=== PATIENT | male | born 1940 | race Caucasian/White ===

== ENCOUNTER → 2017-01-26 | Outpatient (CLI) | payer MEDICARE, BC ==
[~2017-01-26] MED LIST: ATIVAN; BUFFERED ASPIRIN; DIOVAN; FLOMAX; FLUOXETINE; HCTZ; LIPITOR; NEXIUM PO; PULMICORT0.5 MG/21 IH; SINGULAIR; SPIRIVA INH IH; TAZTIA XT240 MG PO; [UNRECOGNIZED DRUG - OTHER]
== END ==
LOC: COL.VAS 11:15
DX: I08.3 Combined rheumatic disorders of mitral, aortic and tricuspid valves (principal); I77.810 Thoracic aortic ectasia

== ENCOUNTER → 2017-08-09 | Outpatient (CLI) | payer MEDICARE, BC | LOC: COL.RAD 10:56 | DX: A31.9 Mycobacterial infection, unspecified (principal); Z98.890 Other specified postprocedural states ==

== ENCOUNTER 2021-06-12 10:23 | Day surgery (SDC) | payer MEDICARE, BC ==
[2021-06-12] VITALS (7 sets, daily range): BP systolic 103–152; BP diastolic 59–90; PULSE 53–67; TEMP 97.7
[~2021-06-12] VITALS: Ht 182.9 cm; Wt 89.5 kg
[2021-06-12 11:16] LABS: HEMOGLOBIN 11.6 g/dl (13.5-18.0); MEAN CELL VOLUME 92 fl (80.0-100.0); MEAN CORPUSCULAR HEMOGLOBIN 30 pg (27-31); MEAN CORPUSCULAR HGB CONC 33 g/dl (33.0-37.0); MEAN PLATELET VOLUME 11.8 fl (7.4-10.4); PLATELET COUNT 184 K/mm3 (130-400); RED BLOOD COUNT 3.83 M/mm3 (4.20-5.60); REDCELL DISTRIBUTION WIDTH-CV 13.3 % (11.5-14.5)
[2021-06-12 11:17] LABS: HEMATOCRIT 35.1 % (42.0-52.0)
[2021-06-12 11:27] LABS: INR 1.1 (0.8-3.0)
[2021-06-12 11:30] LABS: PARTIAL THROMBOPLASTIN TIME 28.8 SECONDS (26.0-37.0)
[2021-06-12 11:32] LABS: CALCIUM 8.6 mg/dL (8.4-10.2); CREATININE, serum 1.4 mg/dL (0.72-1.25); POTASSIUM 4.2 mmol/L (3.5-4.5)
[2021-06-12] MEDS ORDERED: NORVASC 5MG5 MG/TAB PO (11:33)
[2021-06-12] MEDS ORDERED: TOPROL XL 25MG25 MG PO (11:33)
[2021-06-12] MEDS ORDERED: ASPIRIN E.C. 8181 MG PO (11:34)
[2021-06-12] MEDS ORDERED: ANORO IH (11:34)
[2021-06-12] MEDS ORDERED: LIPITOR 40MG TA40 MG PO (11:34)
[2021-06-12] MEDS ORDERED: VOLTAREN 75 DR75 MG PO (11:35)
[2021-06-12] MEDS ORDERED: PROZAC 20MG20 MG PO (11:35)
[2021-06-12] MEDS ORDERED: XOPENEX HF0.045 MG/A IH (11:36)
[2021-06-12] MEDS ORDERED: COZAAR100 MG PO (11:37)
[2021-06-12] MEDS ORDERED: CLARITIN 1010 MG/TAB PO (11:37)
[2021-06-12] MEDS ORDERED: REGLAN 5MG T5 MG/TAB PO (11:38)
[2021-06-12] MEDS ORDERED: REMERON 15M15 MG/TA1 PO (11:39)
[2021-06-12] MEDS ORDERED: SINGULAIR 110 MG/TAB PO (11:39)
[2021-06-12] MEDS ORDERED: PRIL40 PO (11:39)
[2021-06-12] MEDS ORDERED: MASON NATURAL2000 IU PO (11:40)
--- NOTE | 2021-06-12 13:26 | NUR ---
PATIENT ALERT AND ORIENTED. NO REPORTS OF CHEST PAIN OR DISCOMFORT. SEE MERGE FOR DETAILS INCLUDING EXACT DOCUMENTATION WELL MEDICATION ADMINISTRATION. DR. CONTRERAS TO UPDATE PATIENT AND FAMILY.
--- NOTE | 2021-06-12 13:30 | NUR ---
Pt is back to [facility] after heart cath. Pt is awake and alert, no distress. TR band to rt wrist. cms intact distal. Report from Raffi RN. Plan is transfer to higher level of care for possible bypass. PT aware of POC. sr on monitor. okay to give ice chips per Dr. Ritchie.
--- NOTE | 2021-06-12 14:54 | NUR ---
Pt transferred to [facility] in [place], rm 752 by [facility] at 1445. Report called to Kvng GARZA at [facility] at [phone].
== END 2021-06-12 14:45 | disposition short-term general hospital (02) ==
LOC: COL.CAR 10:23
PROVIDERS: Internal Medicine Cardiovascular Disease
DX: I25.10 Atherosclerotic heart disease of native coronary artery without angina pectoris (principal); I10 Essential (primary) hypertension; I38 Endocarditis, valve unspecified; I77.819 Aortic ectasia, unspecified site; R73.03 Prediabetes; J41.0 Simple chronic bronchitis; G47.33 Obstructive sleep apnea (adult) (pediatric); R55 Syncope and collapse; Z79.82 Long term (current) use of aspirin; Z79.899 Other long term (current) drug therapy; Z85.118 Personal history of other malignant neoplasm of bronchus and lung
CPT/HCPCS: J1644; J2250; J3010

== ENCOUNTER 2021-06-24 08:55 | Outpatient (CLI) | payer MEDICARE, BC ==
[~2021-06-24] VITALS: Ht 182.9 cm; Wt 88.4 kg
[2021-06-24] VITALS (80 sets, daily range): BP systolic 114–136; BP diastolic 66–84; PULSE 71–80; TEMP 98.2–98.8; O2SAT 87–95
[~2021-06-24 08:55] MED LIST changes: +ANORO IH; +ASPIRIN E.C. 8181 MG PO; +CLARITIN 1010 MG/TAB PO; +COZAAR100 MG PO; +LIPITOR 40MG TA40 MG PO; +MASON NATURAL2000 IU PO; +NORVASC 5MG5 MG/TAB PO; +PRIL40 PO; +PROZAC 20MG20 MG PO; +REGLAN 5MG T5 MG/TAB PO; +REMERON 15M15 MG/TA1 PO; +SINGULAIR 110 MG/TAB PO; +TOPROL XL 50MG50 MG PO; +VOLTAREN 75 DR75 MG PO; +XOPENEX HF0.045 MG/A IH
[2021-06-24] MEDS ORDERED: FERROUS SU325 MG/TAB PO (16:24)
[2021-06-24] MEDS ORDERED: PLAVIX 75MG TAB75 MG PO (16:24)
[2021-06-24] MEDS ORDERED: FLEXERIL 1010 MG/TAB PO (16:24)
[2021-06-24] MEDS ORDERED: PROTONIX 40MG T40 MG PO (16:25)
[2021-06-24] MEDS ORDERED: MAG-OX 400400 MG/TAB PO (16:26)
== END 2021-06-24 14:00 | disposition home or self-care (01) ==
LOC: EUO 08:55
DX: E83.42 Hypomagnesemia (principal)
CPT/HCPCS: J3475

== ENCOUNTER 2021-07-10 10:35 | Outpatient (RCR) | payer MEDICARE, BC ==
[~2021-07-10 10:35] MED LIST changes: +FERROUS SU325 MG/TAB PO; +FLEXERIL 1010 MG/TAB PO; +MAG-OX 400400 MG/TAB PO; +PLAVIX 75MG TAB75 MG PO; +PROTONIX 40MG T40 MG PO
== END 2021-07-11 | disposition still patient (30) ==
LOC: COL.CR
DX: Z48.812 Encounter for surgical aftercare following surgery on the circulatory system (principal); Z95.5 Presence of coronary angioplasty implant and graft; I25.118 Atherosclerotic heart disease of native coronary artery with other forms of angina pectoris

== ENCOUNTER 2021-08-07 14:22 | Outpatient (RCR) | payer MEDICARE, BC | END 2021-08-11 | disposition home or self-care (01) | LOC: COL.CR | DX: Z48.812 Encounter for surgical aftercare following surgery on the circulatory system (principal); Z95.5 Presence of coronary angioplasty implant and graft; I25.118 Atherosclerotic heart disease of native coronary artery with other forms of angina pectoris ==

== ENCOUNTER 2021-09-03 04:58 | Inpatient (IN) | payer MEDICARE, BC ==
[~2021-09-03] VITALS: Ht 177.8 cm; Wt 83.7 kg
[2021-09-03 06:45] LABS: BASO # 0.1 K/mm3 (0.0-0.2); BASO % 0.5 % (0.0-2.0); EOS # 0.1 K/mm3 (0.0-0.7); EOS % 0.8 % (0.0-4.0); GRAN # 8.6 K/mm3 (1.4-6.5); GRAN % 86.5 % (42.2-75.2); HEMATOCRIT 39.6 % (42.0-52.0); HEMOGLOBIN 12.4 g/dl (13.5-18.0); LYMPH # 0.7 K/mm3 (1.2-3.4); LYMPH % 7.5 % (20.0-51.0); MEAN CELL VOLUME 92 fl (80.0-100.0); MEAN CORPUSCULAR HEMOGLOBIN 29 pg (27-31); MEAN CORPUSCULAR HGB CONC 31 g/dl (33.0-37.0); MEAN PLATELET VOLUME 11.6 fl (7.4-10.4); MONO # 0.4 K/mm3 (0.1-0.6); MONO % 4.3 % (1.7-9.3); PLATELET COUNT 215 K/mm3 (130-400); RED BLOOD COUNT 4.32 M/mm3 (4.20-5.60); REDCELL DISTRIBUTION WIDTH-CV 13.8 % (11.5-14.5)
[2021-09-03 06:59] LABS: ALBUMIN 3.6 gm/dL (3.4-4.8); BILIRUBIN,TOTAL 0.5 mg/dL (0.2-1.2); CALCIUM 8.7 mg/dL (8.4-10.2); CREATININE, serum 0.82 mg/dL (0.72-1.25); TOTAL PROTEIN 6.5 gm/dL (6.2-8.1)
[2021-09-03 07:05] LABS: TROPONIN-I 0.012 ng/mL (0.00-0.033)
[2021-09-03] MEDS ORDERED: MUCINEX 60600 MG/TA1 PO (09:25)
[2021-09-03] MEDS ORDERED: PROZAC 20MG20 MG PO (09:27)
[2021-09-03 11:52] VITALS: BP 121/57; PULSE 81; TEMP 98.7
--- NOTE | 2021-09-03 14:01 | NUR ---
Slide Machine Tender met with patient to discuss discharge planning. Patient lives in [place] with his , Shelia (ph#[phone]) and sees Dr. Lee for primary care. Patient obtains medications from [facility] with no difficulties. Patient has a CPAP and night time oxygen from [facility]. Patient reports independence with ADLS and plans to return home at discharge. Patient reports his is his DPOA-HC. Discharge Plan: Home
--- NOTE | 2021-09-03 15:26 | NUR ---
PT ARRIVED TO ROOM @ [address] PT HAS RESTED MOST OF DAY, EATS BREAKFAST ET LUNCH WITH NO PROBLEMS. OXYGEN ON @ 4L NC, HAS DENIED FURTHER SOB OR ANY PAIN. PT IS STEADY WHILE AMBULATING, HAS BEEN TO BR, REQUIRES ONLY SBA. PT'S SPOUSE IS @ BEDSIDE @ THIS TIME, BOTH DENY NEEDS. RESPIRATIONS UNLABORED. CALL LIGHT WITHIN REACH.
[2021-09-03 15:55] VITALS: BP 112/59; PULSE 89; TEMP 98.7
--- NOTE | 2021-09-03 19:14 | NUR ---
RECEIVED CHANGE OF SHIFT REPORT FROM DAY SHIFT RN.
[2021-09-03 19:35] VITALS: BP 124/56; PULSE 81; TEMP 99.2
--- NOTE | 2021-09-03 20:21 | NUR ---
OXYGEN CONTINUES PER NC AT 5LPM/NC. REPORTS NO WEAKNESS TO BLE WHEN UP OUT OF BED, REPORTS SOME AWKWARDNESS WITH WALKING/MOVING AROUND ROOM WITH OXYGEN TANK. DENIES ANY DISCOMFORT AT THIS TIME.
[2021-09-03 23:45] VITALS: BP 116/55; PULSE 76; TEMP 99
[2021-09-04 04:10] VITALS: BP 122/55; PULSE 70; TEMP 98.6
[2021-09-04 06:28] LABS: BASO # 0.1 K/mm3 (0.0-0.2); BASO % 0.4 % (0.0-2.0); EOS # 0.2 K/mm3 (0.0-0.7); EOS % 1.3 % (0.0-4.0); GRAN # 9.4 K/mm3 (1.4-6.5); GRAN % 78.1 % (42.2-75.2); HEMOGLOBIN 11.7 g/dl (13.5-18.0); LYMPH # 1.5 K/mm3 (1.2-3.4); LYMPH % 12.7 % (20.0-51.0); MEAN CELL VOLUME 91 fl (80.0-100.0); MEAN CORPUSCULAR HEMOGLOBIN 29 pg (27-31); MEAN CORPUSCULAR HGB CONC 32 g/dl (33.0-37.0); MEAN PLATELET VOLUME 12.1 fl (7.4-10.4); MONO # 0.8 K/mm3 (0.1-0.6); PLATELET COUNT 206 K/mm3 (130-400); RED BLOOD COUNT 4.07 M/mm3 (4.20-5.60); REDCELL DISTRIBUTION WIDTH-CV 14.2 % (11.5-14.5)
--- NOTE | 2021-09-04 06:39 | NUR ---
CHANGE OF SHIFT REPORT GIVEN TO DAY SHIFT RNRENALDO.
[2021-09-04 07:03] LABS: ALBUMIN 3.2 gm/dL (3.4-4.8); CALCIUM 8.9 mg/dL (8.4-10.2); CREATININE, serum 0.85 mg/dL (0.72-1.25); PHOSPHOROUS 3.7 mg/dL (2.3-4.7); POTASSIUM 3.5 mmol/L (3.5-4.5)
[2021-09-04 08:00] VITALS: BP 140/69; PULSE 78; TEMP 98.3
--- NOTE | 2021-09-04 10:24 | NUR ---
Initial visit; Patient thanked Election Clerk for looking in on him and offering God's blessings. Patient thanked Election Clerk for visit and was receptive to Election Clerk keeping himin her prayers.
[2021-09-04 11:48] VITALS: BP 109/54; PULSE 73; TEMP 98.1
--- NOTE | 2021-09-04 14:11 | NUR ---
RE:HEART FAILURE - PT CURRENTLY ENROLLED IN CARDIAC REHAB. WILL CONTINUE EDUCATION WITH PATIENT UPON RETURN TO PROGRAM. PT STATES HE IS FEELING MUCH BETTER - STAFF REVIEWED S/X OF CHF/COPD EXASTERBATION AND WHEN TO CONTACT MD. PT PLANS TO RETURN TO CARDIAC REHAB NEXT WEEK IF FEELING UP TO IT. STAFF AGREEABLE WITH PLAN.
[2021-09-04 15:56] VITALS: BP 126/57; PULSE 78; TEMP 98.5
--- NOTE | 2021-09-04 19:28 | NUR ---
PT HAS RESTED IN BED MOST OF DAY, DID PARTICIPATE WITH PHYSICAL THERAPY THIS AM. PT AMBULATES WITH EASE ET FALL RISK IS UPDATED FROM HIGH TO MODERATE. PT AMBULATES INDEPENDENTLY IN ROOM, ENCOURAGED TO CALL FOR NEEDS. PT HAS USED URINAL, URINE IS YELLOW ET CLEAR. OXYGEN HAS BEEN DECREASED FROM 5L TO 2L PER NC, PT HAS TOLERATED WELL. OXYGEN SATS 91-93%. PT DENIES ANY CHEST PAIN OR SOB.
[2021-09-04 19:46] VITALS: BP 116/57; PULSE 80; TEMP 98.5
--- NOTE | 2021-09-04 23:22 | NUR ---
ASSESSMENT COMPLETE. PT. LYING IN BED SLEEPING. ORIENTED X4. NO COMPLAINTS OF PAIN. ON 2 L/MIN OF OXYGEN. INT PATENT TO LEFT AC. CALL LIGHT IN REACH. NO FURTHER NEEDS AT THIS TIME.
[2021-09-04 23:47] VITALS: BP 110/64; PULSE 78; TEMP 98.6
[2021-09-05 03:56] VITALS: BP 98/48; PULSE 78; TEMP 98.4
[2021-09-05 08:19] VITALS: BP 104/58; PULSE 76; TEMP 98.5
[2021-09-05 08:38] LABS: BASO # 0.1 K/mm3 (0.0-0.2); BASO % 0.6 % (0.0-2.0); EOS # 0.3 K/mm3 (0.0-0.7); EOS % 3.2 % (0.0-4.0); GRAN # 7.3 K/mm3 (1.4-6.5); GRAN % 74.1 % (42.2-75.2); HEMATOCRIT 39.6 % (42.0-52.0); HEMOGLOBIN 12.9 g/dl (13.5-18.0); LYMPH # 1.4 K/mm3 (1.2-3.4); LYMPH % 14.4 % (20.0-51.0); MEAN CELL VOLUME 89 fl (80.0-100.0); MEAN CORPUSCULAR HEMOGLOBIN 29 pg (27-31); MEAN CORPUSCULAR HGB CONC 33 g/dl (33.0-37.0); MEAN PLATELET VOLUME 11.7 fl (7.4-10.4); MONO # 0.7 K/mm3 (0.1-0.6); MONO % 7.2 % (1.7-9.3); PLATELET COUNT 233 K/mm3 (130-400); RED BLOOD COUNT 4.45 M/mm3 (4.20-5.60); REDCELL DISTRIBUTION WIDTH-CV 13.9 % (11.5-14.5)
[2021-09-05] MEDS ORDERED: CEFTIN500 MG PO (08:50)
[2021-09-05 09:01] LABS: ALBUMIN 3.3 gm/dL (3.4-4.8); CALCIUM 9.2 mg/dL (8.4-10.2); CREATININE, serum 0.86 mg/dL (0.72-1.25); PHOSPHOROUS 3.9 mg/dL (2.3-4.7); POTASSIUM 3.6 mmol/L (3.5-4.5)
--- NOTE | 2021-09-05 09:20 | NUR ---
PT CONTINUES TO HAVE MOIST HACKING COUGH INTERMITTENTLY, LARGE AMOUNT OF SPUTUM EXPECTORATED, IS BROWN/DARK GREEN ET THICK. PT STATES THAT SPUTUM IS DIFFICULT TO COUGH UP. O2 SATS 88-89% ON 2.5L, INCREASED TO 3L NC, SATS ARE THEN 91-93%. PT IS GIVEN FRESH ICE WATER, DENIES OTHER NEEDS.
[2021-09-05 11:00] VITALS: BP 106/58; PULSE 76; TEMP 98
[2021-09-05] MEDS ORDERED: MUCINEX 60600 MG/TA1 PO (11:11)
[2021-09-05 15:48] VITALS: BP 115/62; PULSE 74; TEMP 98
[2021-09-05 21:35] VITALS: BP 121/61; PULSE 68; TEMP 98.7
--- NOTE | 2021-09-05 21:59 | NUR ---
ASSESSMENT COMPLETE. PT. IN BED READING. A&O. NO COMPLAINTS OF PAIN. NIGHTLY MEDS GIVEN. SEE EMAR. CALL LIGHT IN REACH. NO FURHTER NEEDS AT THIS TIME.
[2021-09-06 00:18] VITALS: BP 125/64; PULSE 66; TEMP 97.9
[2021-09-06 04:45] VITALS: BP 103/61; PULSE 68; TEMP 97.7
[2021-09-06 07:47] LABS: BASO # 0.1 K/mm3 (0.0-0.2); EOS # 0.4 K/mm3 (0.0-0.7); EOS % 5.2 % (0.0-4.0); GRAN # 5.5 K/mm3 (1.4-6.5); GRAN % 68.8 % (42.2-75.2); HEMATOCRIT 40.2 % (42.0-52.0); HEMOGLOBIN 12.7 g/dl (13.5-18.0); LYMPH # 1.3 K/mm3 (1.2-3.4); LYMPH % 16.6 % (20.0-51.0); MEAN CELL VOLUME 91 fl (80.0-100.0); MEAN CORPUSCULAR HEMOGLOBIN 29 pg (27-31); MEAN CORPUSCULAR HGB CONC 32 g/dl (33.0-37.0); MEAN PLATELET VOLUME 11.6 fl (7.4-10.4); MONO # 0.6 K/mm3 (0.1-0.6); MONO % 7.9 % (1.7-9.3); PLATELET COUNT 247 K/mm3 (130-400); RED BLOOD COUNT 4.41 M/mm3 (4.20-5.60); REDCELL DISTRIBUTION WIDTH-CV 13.9 % (11.5-14.5)
[2021-09-06 07:51] VITALS: BP 105/57; PULSE 71; TEMP 98.3
[2021-09-06 08:05] LABS: ALBUMIN 3.2 gm/dL (3.4-4.8); CALCIUM 9.3 mg/dL (8.4-10.2); CREATININE, serum 0.98 mg/dL (0.72-1.25); MAGNESIUM 2.1 mg/dL (1.6-2.6); PHOSPHOROUS 4.5 mg/dL (2.3-4.7); POTASSIUM 3.8 mmol/L (3.5-4.5)
[2021-09-06 12:00] VITALS: BP 93/60; PULSE 71; TEMP 98.1
--- NOTE | 2021-09-06 13:32 | NUR ---
ROSE MARIE faxed over DC orders and 1L script to pt current provider with [facility] in [facility]. Fax number [phone]. Pt is already using a portable concentrator at night at 1-4 L and has extra oxygen at home.
--- NOTE | 2021-09-06 15:00 | NUR ---
PT DISCHARGED TO HOME @ THIS TIME. PT GIVEN DISCHARGE INSTRUCTIONS ET EDUCATION, VERBALIZES UNDERSTANDING, DENIES QUESTIONS. RESPIRATIONS UNLABORED ON ROOM AIR. PT HAS HAD COUGH THAT IS LESS FREQUENT TODAY, PT STATES THAT HE IS STILL EXPECTORATING BROWN THICK SPUTUM. PT TAKEN TO PRIVATE VEHICLE VIA WC ACCOMPANIED BY BINH PERES.
== END 2021-09-06 15:00 | disposition home or self-care (01) | DRG 193 ==
LOC: COL.ER 04:58 → SURG 07:27
PROVIDERS: Emergency Medicine Emergency Medical Services; ADMIT Internal Medicine
DX: J18.9 Pneumonia, unspecified organism (principal); J96.01 Acute respiratory failure with hypoxia; R04.2 Hemoptysis; J44.9 Chronic obstructive pulmonary disease, unspecified; Z20.822 Contact with and (suspected) exposure to COVID-19; D64.9 Anemia, unspecified; F32.A Depression, unspecified; E78.5 Hyperlipidemia, unspecified; I11.0 Hypertensive heart disease with heart failure; I50.9 Heart failure, unspecified; K21.9 Gastro-esophageal reflux disease without esophagitis; I25.10 Atherosclerotic heart disease of native coronary artery without angina pectoris; Z95.5 Presence of coronary angioplasty implant and graft; Z90.89 Acquired absence of other organs; Z79.02 Long term (current) use of antithrombotics/antiplatelets; Z90.79 Acquired absence of other genital organ(s); Z91.048 Other nonmedicinal substance allergy status; Z92.3 Personal history of irradiation; Z85.118 Personal history of other malignant neoplasm of bronchus and lung; Z79.82 Long term (current) use of aspirin; Z72.89 Other problems related to lifestyle; Z87.891 Personal history of nicotine dependence; Z85.828 Personal history of other malignant neoplasm of skin; Z23 Encounter for immunization
CPT/HCPCS: 99223-AI; 99232-AI; 99239; J0692; J0696; J1940; Q9967

== ENCOUNTER 2021-09-09 12:25 | Outpatient (RCR) | payer MEDICARE, BC ==
[~2021-09-09 12:25] MED LIST changes: +CEFTIN500 MG PO; +MUCINEX 60600 MG/TA1 PO
== END 2021-09-10 | disposition home or self-care (01) ==
LOC: COL.CR
DX: Z48.812 Encounter for surgical aftercare following surgery on the circulatory system (principal); Z95.5 Presence of coronary angioplasty implant and graft

== ENCOUNTER 2021-10-09 12:11 | Outpatient (RCR) | payer MEDICARE, BC | END 2021-10-11 | disposition home or self-care (01) | LOC: COL.CR | DX: Z48.812 Encounter for surgical aftercare following surgery on the circulatory system (principal); Z95.5 Presence of coronary angioplasty implant and graft; I25.118 Atherosclerotic heart disease of native coronary artery with other forms of angina pectoris ==

== ENCOUNTER 2021-10-14 11:06 | Outpatient (RCR) | payer MEDICARE, BC | END 2021-10-16 11:42 | disposition home or self-care (01) | LOC: COL.CR 11:06 | DX: Z48.812 Encounter for surgical aftercare following surgery on the circulatory system (principal); Z95.5 Presence of coronary angioplasty implant and graft; I25.118 Atherosclerotic heart disease of native coronary artery with other forms of angina pectoris ==

== ENCOUNTER → 2021-11-11 | Outpatient (RCR) | payer MEDICARE, BC | END | disposition home or self-care (01) | LOC: COL.CR | DX: Z48.812 Encounter for surgical aftercare following surgery on the circulatory system (principal); Z95.5 Presence of coronary angioplasty implant and graft; I25.118 Atherosclerotic heart disease of native coronary artery with other forms of angina pectoris ==

== ENCOUNTER → 2022-01-11 | Outpatient (RCR) | payer MEDICARE, BC | END | disposition home or self-care (01) | LOC: COL.CR | DX: J44.9 Chronic obstructive pulmonary disease, unspecified (principal) ==

== ENCOUNTER 2022-09-10 10:10 | Inpatient (IN) | payer MEDICARE, BC ==
[~2022-09-10] VITALS: Wt 84.4 kg
[~2022-09-10 10:10] MED LIST changes: +DOXYCYCLINE 10100 MG PO; +LASIX 20MG TABL20 MG PO; -LIPITOR 40MG TA40 MG PO; +LIPITOR 80MG80 MG PO; +NITROSTAT0.4 MG/TAB SL; +PREDNISONE20 MG PO; +PROAIR HFA0.09 MG/AC IH; +TAMIFLU 75MG75 MG PO
[2022-09-10 10:43] LABS: BASO # 0.1 K/mm3 (0.0-0.2); BASO % 1.4 % (0.0-2.0); EOS # 0.3 K/mm3 (0.0-0.7); EOS % 3.9 % (0.0-4.0); GRAN # 3.7 K/mm3 (1.4-6.5); GRAN % 55.9 % (42.2-75.2); HEMATOCRIT 39.7 % (42.0-52.0); HEMOGLOBIN 12.5 g/dl (13.5-18.0); LYMPH % 30.8 % (20.0-51.0); MEAN CELL VOLUME 93 fl (80.0-100.0); MEAN CORPUSCULAR HEMOGLOBIN 29 pg (27-31); MEAN CORPUSCULAR HGB CONC 32 g/dl (33.0-37.0); MEAN PLATELET VOLUME 11.5 fl (7.4-10.4); MONO # 0.5 K/mm3 (0.1-0.6); MONO % 7.7 % (1.7-9.3); PLATELET COUNT 223 K/mm3 (130-400); RED BLOOD COUNT 4.29 M/mm3 (4.20-5.60); REDCELL DISTRIBUTION WIDTH-CV 14.5 % (11.5-14.5)
[2022-09-10 10:47] LABS: PROTHROMBIN TIME 11.3 SECONDS (9.7-12.8)
[2022-09-10 10:56] LABS: ALBUMIN 3.8 gm/dL (3.4-4.8); BILIRUBIN,TOTAL 0.6 mg/dL (0.2-1.2); CREATININE, serum 0.88 mg/dL (0.72-1.25); POTASSIUM 4.1 mmol/L (3.5-4.5); TOTAL PROTEIN 6.7 gm/dL (6.2-8.1)
[2022-09-10 11:03] LABS: TROPONIN-I 0.026 ng/mL (0.00-0.033)
[2022-09-10 12:00] LABS: COLLECTION METHOD CLEAN CATCH
[2022-09-10 12:03] LABS: URINE APPEARANCE Clear (CLEAR/HAZY); URINE COLOR Yellow (YELLOW)
[2022-09-10 12:04] LABS: PH 5.5 (5.0-8.5); SQUAMOUS EPITHELIAL 0-2 /hpf (0-10); URINE BACTERIA None Seen /hpf (NONE SEEN); URINE BLOOD Negative (NEGATIVE); URINE GLUCOSE Negative (NEGATIVE); URINE KETONE Negative (NEGATIVE); URINE NITRATE Negative (NEGATIVE); URINE PROTEIN(semi-quant) Negative (NEGATIVE); URINE RBC 0-2 /hpf (0-2); URINE UROBILINOGEN 0.2 E.U/dL (0.2-1.0)
[2022-09-10 12:45] LABS: CHOLESTEROL RISK RATIO 3.7
[2022-09-10] MEDS ORDERED: TYLENOL 500MG500 MG PO (13:45)
[2022-09-10] MEDS ORDERED: VITAMIN D31000 I1 PO (13:45)
[2022-09-10 15:44] VITALS: BP 139/64; PULSE 77; TEMP 97.9
--- NOTE | 2022-09-10 17:59 | NUR ---
Patient admitted around 1500 escorted by nutrition technician and family member. Patient was in pleasant mood and denied pain. Admission assessment completed, no variances noted. Patient reports feeling his symptoms have improved and denied anything worsening. Reports his baseline at home is independent and he is currently in an out patient PT program. Fall risk precautions in place. Telemetry on. Patient voices no concerns at this time. Currently resting in bed with HOB elevated 90 degrees per patient preference. Call light in reach.
[2022-09-10 19:54] VITALS: BP 133/67; PULSE 86; TEMP 97.8
[2022-09-10 21:00] VITALS: BP_SYST 120
[2022-09-11] VITALS (9 sets, daily range): BP systolic 110–136; BP diastolic 55–73; PULSE 72–84; TEMP 97.5–98.2
--- NOTE | 2022-09-11 02:31 | NUR ---
NURSING SHIFT ASSESSMENT COMPLETED. THE PATIENT WAS ALERT AND ORIENTED UPON ASSESSMENT. NO RESIDUAL STROKE SYMPTOMS NOTED. THE PATIENT DENIED PAIN OR DISCOMFORT. EVENING MEDICATIONS AND PLAN OF CARE DISCUSSED. CALL LIGHT WITHIN REACH. BED IN LOW POSITION. BED ALARM ON.
[2022-09-11 07:10] LABS: BASO % 0.2 % (0.0-2.0); EOS % 0.1 % (0.0-4.0); GRAN # 7.7 K/mm3 (1.4-6.5); GRAN % 79.5 % (42.2-75.2); HEMATOCRIT 36.5 % (42.0-52.0); HEMOGLOBIN 11.7 g/dl (13.5-18.0); LYMPH # 1.3 K/mm3 (1.2-3.4); LYMPH % 13.4 % (20.0-51.0); MEAN CELL VOLUME 92 fl (80.0-100.0); MEAN CORPUSCULAR HEMOGLOBIN 29 pg (27-31); MEAN CORPUSCULAR HGB CONC 32 g/dl (33.0-37.0); MEAN PLATELET VOLUME 11.8 fl (7.4-10.4); MONO # 0.6 K/mm3 (0.1-0.6); MONO % 6.2 % (1.7-9.3); PLATELET COUNT 227 K/mm3 (130-400); RED BLOOD COUNT 3.98 M/mm3 (4.20-5.60); REDCELL DISTRIBUTION WIDTH-CV 14.1 % (11.5-14.5)
[2022-09-11 07:20] LABS: ALBUMIN 3.3 gm/dL (3.4-4.8); CREATININE, serum 0.78 mg/dL (0.72-1.25); MAGNESIUM 2.1 mg/dL (1.6-2.6); PHOSPHOROUS 3.7 mg/dL (2.3-4.7)
--- NOTE | 2022-09-11 09:41 | NUR ---
Shift assessment complete. Patient reports no increase in stroke related symptoms. States he feels stronger than yesterday, but slightly weakned in general. Reports no issues with swallowing when eating, but notes slight difficulty with chewing food. Patient also stated he felt numbness in his left arm when he coughs hard. Patient denies pain. Tolerated breakfast well. Vital signs are stable.
--- NOTE | 2022-09-11 11:44 | NUR ---
SW met with patient to complete intake. Patient states that he lives in [facility] with Shelia Mar [phone]. Patient provides that he is independent with ADL's, does not utililize DME, and does not utilize HH services at this time. Patient provides that his PCP is Dr. Lee, and pharmacy is [facility] or [facility]. Patient shared DPOA/HC is spouse. Patient plans to return to his home upon DC. Patient states that he would like to obtain resources for HH agencies to review in case he needs assistance for he and his due to him being her primary care provider. Documentation provided for patient review. SW will continue to follow. DC plan: home (home health?)
--- NOTE | 2022-09-11 13:10 | NUR ---
Dr. Sierra called for pulmonary consult and updated on patient condition. Dr. Sierra states he will be by to assess patient in the morning.
--- NOTE | 2022-09-11 23:51 | NUR ---
Pt assessment was completed at 2030. A&OX4. Pt requested his CPAP. O2 at 3L with bleed in. LFA and RFA INTs are CDI. All meds given per emar. Pt able to verbalize his needs and concerns reports not having any other requests at this time. Belongings and call light are within reach.
[2022-09-12] VITALS (12 sets, daily range): BP systolic 95–146; BP diastolic 50–79; PULSE 67–86; TEMP 97.4–98.2
[2022-09-12 07:40] LABS: HEMATOCRIT 38.4 % (42.0-52.0); HEMOGLOBIN 12.5 g/dl (13.5-18.0); MEAN CELL VOLUME 91 fl (80.0-100.0); MEAN CORPUSCULAR HEMOGLOBIN 30 pg (27-31); MEAN CORPUSCULAR HGB CONC 33 g/dl (33.0-37.0); MEAN PLATELET VOLUME 11.5 fl (7.4-10.4); PLATELET COUNT 233 K/mm3 (130-400); RED BLOOD COUNT 4.22 M/mm3 (4.20-5.60); REDCELL DISTRIBUTION WIDTH-CV 14.6 % (11.5-14.5)
[2022-09-12 08:12] LABS: ALBUMIN 3.5 gm/dL (3.4-4.8); CALCIUM 8.8 mg/dL (8.4-10.2); CREATININE, serum 1.01 mg/dL (0.72-1.25); MAGNESIUM 2.1 mg/dL (1.6-2.6); PHOSPHOROUS 4.4 mg/dL (2.3-4.7); POTASSIUM 3.8 mmol/L (3.5-4.5)
[2022-09-12 08:57] LABS: EOSINOPHIL 1 % (0-4); HYPOCHROMIA 1+; LYMPHOCYTE 32 % (20.0-51.0); NEUTROPHILS 60 % (42.0-75.2); PLATELET ESTIMATE NORMAL (NORMAL)
--- NOTE | 2022-09-12 09:53 | NUR ---
Shift assessment complete. Patient is in pleasant mood and tolerated breakfast well. Speech therapy consult requested per Dr. Sharif's suggestion in physician notes due to patient reporting difficulties chewing and ongoing coughing. Patient reports no increase in difficulty with mobility. Patient currently sitting up in bed reading with call light in reach. Fall risk precautions in place.
--- NOTE | 2022-09-12 13:19 | NUR ---
[facility] notified this nurse around 1245 that patient reported feeling sweaty and light headed. Prior to this, patient's BP noted to be lower around 95/50. This nurse checked blood sugar and VS and blood sugar was low at 63. BP 146/79. Pulse and SpO2 within normal limits. Patient was given orange juice to drink and lunch tray arrived. Patient ate 100% of lunch and requested a sandwich box from nourishment room as well. Blood sugar after lunch 103. Patient reports feeling better after eating and feels his appetite has increased. This nurse asked patient if he feels his body is reacting to a lack of alcohol due to patient reporting daily use of various types. Patient stated he usually drinks a couple glasses of wine or another type, but not consistently every day. Patient denied feeling like his body was wthdrawling. Patient currently sitting up in bed with call light in reach. Fall risk precautions in place.
--- NOTE | 2022-09-12 16:32 | NUR ---
Hand off report given to NADER Betts on patient condition and new orders.
--- NOTE | 2022-09-12 22:22 | NUR ---
Pt BP was 97/53. LEEANNA Garza was notified and verbal orders received to put medication on hold tonight and continue tomorrow. Pt was complaining of having thick secretions and requested mucinex. Emar was updated and meds given per orders. Pt denies pain. A&Ox4. CPAP in place and ready to use. Simpson juice requested before sleeping. Belongings and call light are within reach.
[2022-09-13 00:21] VITALS: BP 105/60; PULSE 76; TEMP 98.3
[2022-09-13 04:00] VITALS: BP 131/81; PULSE 77; TEMP 98
[2022-09-13 05:06] VITALS: BP_SYST 131
[2022-09-13 05:56] LABS: BASO # 0.1 K/mm3 (0.0-0.2); BASO % 1.1 % (0.0-2.0); EOS # 0.3 K/mm3 (0.0-0.7); EOS % 4.2 % (0.0-4.0); GRAN # 3.9 K/mm3 (1.4-6.5); GRAN % 53.9 % (42.2-75.2); HEMOGLOBIN 12.5 g/dl (13.5-18.0); LYMPH # 2.1 K/mm3 (1.2-3.4); LYMPH % 29.8 % (20.0-51.0); MEAN CELL VOLUME 91 fl (80.0-100.0); MEAN CORPUSCULAR HEMOGLOBIN 29 pg (27-31); MEAN CORPUSCULAR HGB CONC 32 g/dl (33.0-37.0); MEAN PLATELET VOLUME 11.4 fl (7.4-10.4); MONO # 0.7 K/mm3 (0.1-0.6); MONO % 10.3 % (1.7-9.3); PLATELET COUNT 230 K/mm3 (130-400); RED BLOOD COUNT 4.28 M/mm3 (4.20-5.60); REDCELL DISTRIBUTION WIDTH-CV 14.5 % (11.5-14.5)
[2022-09-13 06:13] LABS: ALBUMIN 3.4 gm/dL (3.4-4.8); CALCIUM 8.9 mg/dL (8.4-10.2); CREATININE, serum 1.11 mg/dL (0.72-1.25); MAGNESIUM 2.2 mg/dL (1.6-2.6); PHOSPHOROUS 4.4 mg/dL (2.3-4.7); POTASSIUM 3.8 mmol/L (3.5-4.5)
[2022-09-13 07:35] VITALS: BP 126/69; PULSE 74; TEMP 98.2
[2022-09-13 08:00] VITALS: BP_SYST 126
[2022-09-13 08:11] LABS: PATHOLOGY DIFF REVIEW OK
--- NOTE | 2022-09-13 11:30 | NUR ---
The hospitalist notified ROSE MARIE that the patient should be ready to discharge today. ROSE MARIE met with the patient to review discharge plan and follow up about home health. The patient confirms plan to return home with his . He states that after working with therapy, he does not feel like he has a need for home health. He reports that he is already enrolled in and partipates in [facility] and he would like to continue with that. He had no concerns for SW. No additional needs at this time.
[2022-09-13 11:40] VITALS: BP 125/77; PULSE 82; TEMP 97.6
--- NOTE | 2022-09-13 12:04 | NUR ---
THIS NURSE PROVIDED PATIENT WITH DISCHARGE INSTRUCTIONS AND EDUCATION. BOTH IV SITES IN BOTH FOREARMS DISCONTINUED WITH CATHETER TIPS INTACT. PATIENT ESCORTED OFF UNIT VIA W/C WITH PCT AND FRIEND. ALL BELONGINGS WITH PATIENT.
[2022-09-18] MEDS ORDERED: AMOXICILLIN 8751 TAB PO (14:50)
== END 2022-09-13 12:04 | disposition home or self-care (01) | DRG 64 ==
LOC: COL.ER 10:10 → MEDICAL 11:33 → EDBEDREQ 12:26 → MEDICAL 09-11 10:38
PROVIDERS: Emergency Medicine; ADMIT Internal Medicine
DX: I63.9 Cerebral infarction, unspecified (principal); J18.9 Pneumonia, unspecified organism; J96.01 Acute respiratory failure with hypoxia; J44.0 Chronic obstructive pulmonary disease with (acute) lower respiratory infection; J44.1 Chronic obstructive pulmonary disease with (acute) exacerbation; G81.94 Hemiplegia, unspecified affecting left nondominant side; K21.9 Gastro-esophageal reflux disease without esophagitis; E78.5 Hyperlipidemia, unspecified; F32.A Depression, unspecified; I25.10 Atherosclerotic heart disease of native coronary artery without angina pectoris; Z85.118 Personal history of other malignant neoplasm of bronchus and lung; Z95.5 Presence of coronary angioplasty implant and graft; Z79.02 Long term (current) use of antithrombotics/antiplatelets; Z79.899 Other long term (current) drug therapy; G47.33 Obstructive sleep apnea (adult) (pediatric); I10 Essential (primary) hypertension; R29.810 Facial weakness
CPT/HCPCS: A9575; G0378; J0456; J0696; J1650; J1940; J2920; J7030; J7050; Q9967